=== PATIENT | female | born 1980 | race Caucasian/White ===

== ENCOUNTER → 2020-08-13 10:23 | Outpatient (CLI) | payer BC, SELFPAY ==
--- NOTE | ~2020-08-13 | US_ITS ---
EXAMINATION: US pelvic complete DATE: 08/13/2020 11:16 INDICATION: Pelvic congestion syndrome, numbness and tingling down the legs TECHNIQUE: Multiple transabdominal and endovaginal sonographic images of the pelvis were obtained. COMPARISON: None. FINDINGS: The uterus measures 9.3 x 4.1 x 4.9 cm. The endometrial complex measures 5 mm. The right ov nirajnan measures 2.2 x 1.9 x 2.4 cm. The left ovary measures 1.6 x 1.0 x 2.8 cm. There is normal vascular flow in the ovaries. There is no free fluid in the pelvis. IMPRESSION: 1. No sonographic correlate for the patient's symptoms. Reviewed, dictated and finalized at location A. [employer]
--- NOTE | ~2020-08-13 | US_ITS ---
EXAMINATION: US venous doppler [facility] DATE: 08/13/2020 11:16 INDICATION: Bilateral lower limb pain TECHNIQUE: Perez scale images without and with compression and Doppler images of the bilateral lower e xtremity veins were obtained. COMPARISON: None FINDINGS: The right common femoral vein, profunda femoral vein, femoral vein, popliteal vein, peroneal trunk, p osterior tibial veins, and greater saphenous vein are patent. The left common femoral vein, profunda femoral vein, femoral vein, popliteal vein, peroneal trunk, po sterior tibial veins, and greater saphenous vein are patent. IMPRESSION: 1. Patent bilateral lower extremity veins. No evidence of deep venous thrombosis. Reviewed, dictated and finalized at location A. [employer] IMPRESSION: 1. Patent bilateral lower extremity veins. No evidence of deep venous thrombosi s.
== END ==
PROVIDERS: PCP Physician Assistant; Visit Provider Physician Assistant
DX: M79.604 Pain in right leg (principal); N64.89 Other specified disorders of breast; M79.605 Pain in left leg
CPT/HCPCS: 76856; 93970